=== PATIENT | male | born 1990 | race Caucasian/White ===

== ENCOUNTER 2020-05-05 10:56 | Emergency (ER) | payer OTHER ==
[~2020-05-05] VITALS: Ht 182.9 cm; Wt 102.1 kg
[2020-05-05 11:36] LABS: ABSOLUTE BASOPHILS 0.1 thou/uL (0.0-0.2); ABSOLUTE LYMPHOCYTES 1.5 thou/uL (0.8-5.3); ABSOLUTE MONOCYTES 0.6 thou/uL (0.0-1.2); ABSOLUTE NEUTROPHILS 2.9 thou/uL (1.6-8.1); BASOPHILS 1.8 %; EOSINOPHILS 0.2 %; HEMOGLOBIN 15.8 gm/dL (14.0-18.0); LYMPHOCYTES 29.2 %; MCH 29.9 pg (26.0-34.0); MCHC 34.4 g/dL (28.0-37.0); MCV 86.9 fL (80.0-100.0); MONOCYTES 12.2 %; MPV 8.1 fl. (7.2-11.1); NUCLEATED RBCS 0 /100WBC; PLATELET COUNT* 170 thou/uL (150-400); POLYS 56.6 %; RBC 5.29 mil/uL (4.50-6.00); RDW-CV 14.2 % (10.5-14.5); WBC 5.1 thou/uL (4.0-11.0)
[2020-05-05 11:45] LABS: CALCIUM 8.3 mg/dL (8.5-10.1); CREATININE 1.2 mg/dL (0.6-1.3); POTASSIUM 4.2 mmol/L (3.5-5.1)
[2020-05-05 11:48] LABS: APTT 28.4 Seconds (25.0-31.3); INR 1.1; PROTIME 10.9 Seconds (9.20-11.50)
[2020-05-05 11:56] LABS: ALBUMIN 3.8 g/dL (3.4-5.0); TOTAL BILIRUBIN 0.5 mg/dL (<0.1-1.0); TOTAL PROTEIN 7.3 g/dL (6.4-8.2)
[2020-05-05] MEDS ORDERED: ONDANSETRON HCL4 M2 PO (12:19)
[2020-05-05] MEDS ORDERED: VENTOLIN HFA 1818 GM INH (12:19)
[2020-05-05] MEDS ORDERED: ZPAK PO (12:19)
[2020-05-05 13:11] VITALS: BP 138/98
--- NOTE | 2020-05-05 14:42 | EKG ---
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
== END 2020-05-05 13:11 | disposition home or self-care (01) ==
LOC: M.ERS 10:56
PROVIDERS: Nurse Practitioner Family
DX: U07.1 COVID-19 (principal); Z90.49 Acquired absence of other specified parts of digestive tract

== ENCOUNTER 2020-05-10 18:25 | Emergency (ER) | payer OTHER ==
[~2020-05-10] VITALS: Ht 182.9 cm; Wt 99.8 kg
[~2020-05-10 18:25] MED LIST: ONDANSETRON HCL4 M2 PO; VENTOLIN HFA 1818 GM INH; ZPAK PO
[2020-05-10 18:49] LABS: ABSOLUTE EOSINOPHILS 0.1 thou/uL (0.0-0.7); ABSOLUTE LYMPHOCYTES 1.3 thou/uL (0.8-5.3); ABSOLUTE MONOCYTES 0.4 thou/uL (0.0-1.2); ABSOLUTE NEUTROPHILS 2.2 thou/uL (1.6-8.1); EOSINOPHILS 2.1 %; HEMATOCRIT 46.6 % (42.0-52.0); HEMOGLOBIN 16.5 gm/dL (14.0-18.0); LYMPHOCYTES 32.6 %; MCH 30.6 pg (26.0-34.0); MCHC 35.4 g/dL (28.0-37.0); MCV 86.5 fL (80.0-100.0); MONOCYTES 10.1 %; NUCLEATED RBCS 0 /100WBC; PLATELET COUNT* 144 thou/uL (150-400); POLYS 54.2 %; RBC 5.39 mil/uL (4.50-6.00); RDW-CV 14.1 % (10.5-14.5); WBC 4.1 thou/uL (4.0-11.0)
[2020-05-10 18:58] LABS: CALCIUM 7.9 mg/dL (8.5-10.1); CREATININE 1.3 mg/dL (0.6-1.3); POTASSIUM 4.1 mmol/L (3.5-5.1)
[2020-05-10 19:04] LABS: ALBUMIN 3.7 g/dL (3.4-5.0); TOTAL BILIRUBIN 0.5 mg/dL (<0.1-1.0)
[2020-05-10 20:04] VITALS: BP 117/68
--- NOTE | 2020-05-12 14:35 | EKG ---
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[facility] : 1990 Requested By: Cyn Solorzano Order Number: [id number] Clarissa MD: Benny Waters Measurements Intervals [place] Rate: 80 P: 41 DC: 169 QRS: -15 QRSD: 94 T: 31 QT: 349 QTc: 403 Interpretive Statements Sinus rhythm Borderline left axis deviation Compared to ECG 05/05/2020 11:02:01 No significant changes Electronically Signed On 05-12-2020 14:35:40 CDT by Benny Waters [email or web address] <ELECTRONICALLY SIGNED> By: Benny Waters MD, [facility] 05/12/20 1435 1854 185 Benny Waters MD, [facility] /EPI
== END 2020-05-10 20:04 | disposition home or self-care (01) ==
LOC: M.ERS 18:25
PROVIDERS: Physician Assistant
DX: U07.1 COVID-19 (principal); M79.605 Pain in left leg; M79.604 Pain in right leg; M54.5 Low back pain; Z90.49 Acquired absence of other specified parts of digestive tract

== ENCOUNTER 2020-08-10 20:09 | Emergency (ER) | payer OTHER ==
[~2020-08-10] VITALS: Ht 180.3 cm; Wt 104.3 kg
[2020-08-10] MEDS ORDERED: NEURONTIN 300M300 M2 PO (20:17)
[2020-08-10 20:56] LABS: INFLUENZA A ANTIGEN Negative (Negative); INFLUENZA B ANTIGEN Negative (Negative)
[2020-08-10] MEDS ORDERED: ZPAK PO (21:36)
[2020-08-10] MEDS ORDERED: VENTOLIN HFA 1818 GM INH (21:36)
[2020-08-10] MEDS ORDERED: ONDANSETRON HCL4 M2 PO (21:42)
[2020-08-10 22:06] VITALS: BP 138/97
== END 2020-08-10 22:06 | disposition home or self-care (01) ==
LOC: M.ERS 20:09
PROVIDERS: Emergency Medicine
DX: J06.9 Acute upper respiratory infection, unspecified (principal); Z20.828 Contact with and (suspected) exposure to other viral communicable diseases

== ENCOUNTER 2020-09-21 15:45 | Emergency (ER) | payer OTHER ==
[~2020-09-21] VITALS: Ht 180.3 cm; Wt 99.8 kg
[~2020-09-21 15:45] MED LIST changes: +NEURONTIN 300M300 M2 PO
[2020-09-21] MEDS ORDERED: IBUPROFEN 800800 M1 PO (18:30)
[2020-09-21] MEDS ORDERED: NORCO 7.5-3251 EACH PO (18:30)
[2020-09-21] MEDS ORDERED: MEDROLDOSEPACK PO (18:30)
[2020-09-21 18:50] VITALS: BP 121/77
== END 2020-09-21 18:51 | disposition home or self-care (01) ==
LOC: M.ERS 15:45
DX: M54.41 Lumbago with sciatica, right side (principal); M79.671 Pain in right foot; Z90.49 Acquired absence of other specified parts of digestive tract

== ENCOUNTER 2020-12-11 11:33 | Emergency (ER) | payer OTHER ==
[~2020-12-11] VITALS: Ht 180.3 cm; Wt 98.9 kg
[~2020-12-11 11:33] MED LIST changes: +IBUPROFEN 800800 M1 PO; +MEDROLDOSEPACK PO; +NORCO 7.5-3251 EACH PO
[2020-12-11] MEDS ORDERED: RELAFEN750 M1 PO (11:40)
[2020-12-11 12:09] LABS: HEMOGLOBIN 14.7 gm/dL (14.0-18.0); MCHC 34.3 g/dL (28.0-37.0); MCV 87.6 fL (80.0-100.0); MPV 7.5 fl. (7.2-11.1); RBC 4.91 mil/uL (4.50-6.00); RDW-CV 13.4 % (10.5-14.5); WBC 5.1 thou/uL (4.0-11.0)
[2020-12-11 12:17] LABS: CALCIUM 9.4 mg/dL (8.5-10.1); CREATININE 1.2 mg/dL (0.6-1.3); POTASSIUM 4.1 mmol/L (3.5-5.1)
[2020-12-11 12:22] LABS: ALBUMIN 4.3 g/dL (3.4-5.0); TOTAL PROTEIN 7.4 g/dL (6.4-8.2)
[2020-12-11 13:08] VITALS: BP 115/69
--- NOTE | 2020-12-11 15:11 | EKG ---
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
== END 2020-12-11 13:09 | disposition home or self-care (01) ==
LOC: M.ERS 11:33
PROVIDERS: Nurse Practitioner Family
DX: R07.89 Other chest pain (principal); Z90.49 Acquired absence of other specified parts of digestive tract